=== PATIENT | male | born 1950 | race Caucasian/White ===

== ENCOUNTER 2017-04-20 10:46 | Inpatient (IN) | payer MEDICARE, MEDICAID ==
[~2017-04-20] VITALS: Ht 175.3 cm; Wt 61.3 kg
--- NOTE | ~2017-04-20 | WRIGHTHP ---
[place], [place] PATIENT HISTORY AND PHYSICAL EXAM [id number] UNIT #: [id number] ROOM: 312 DOCTOR: YASMINE RAZA MD BIRTHDATE: [birth year] DOS: 04/20/2017 CHIEF COMPLAINT: "I have just been so depressed doc, I have had so many people doc." HISTORY OF PRESENT ILLNESS: This is a 66-year-old black male who was sent from the [facility] Emergency Room. The patient had presented there with worsening depression with suicidal thoughts and a plan to walk into traffic in order to kill himself. 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 He also reports significant decrease in his appetite with a significant weight loss. The patient states that over the last year, he has had multiple deaths in his family and has found it very difficult to go on. He does also endorse that he has a very poor support system because most of his close family have subsequently passed. He was admitted now to rule out organic factors, to stabilize on medication and to return home when psychiatrically stable. PAST MEDICAL HISTORY: Significant for a history of both alcohol and cocaine abuse as well as a history of hypertension, herniated disk and an old myocardial infarction. MENTAL STATUS: The patient is alert and oriented to person, place, and time. Mood is overwhelmingly depressed. Affect is flat and blunted with a constricted range. He endorses the above-mentioned neurovegetative symptoms including suicidal thoughts with a plan. There is no hypomania or daisy. There are no overt auditory or visual hallucinations. No delusions, no paranoia. Short, intermediate, and custodial memory are relatively intact. DIAGNOSIS: Major depression, recurrent, severe; alcohol abuse; cocaine abuse. PLAN: I have started him on Remeron 15 mg at bedtime. I will augment this with Zyprexa 2.5 mg at bedtime not only to make the antidepressant work better, but to also stimulate appetite. We will engage in individual and bennett milieu activity, provide grief counseling, work on an improved support system post-discharge, discharging him back to the community when psychiatrically stable. [place], [place] PATIENT HISTORY AND PHYSICAL EXAM NAME: LANDRYSTEVEN Jake UNIT #: [id number] ROOM: 312 DOCTOR: YASMINE RAZA MD BIRTHDATE: [birth year] YASMINE RAZA MD CM:HISPHYS:PATIENT HISTORY AND PHYSICAL EXAMINATION [id number] YASMINE RAZA MD 04/21/17 0758 interface
--- NOTE | ~2017-04-20 | PR ---
[place], [place] PROGRESS NOTE NAME: STEVEN LANDRY UNIT #: [id number] ROOM: 312 DOCTOR: YASMINE RAZA MD BIRTHDATE: [birth year] DOS: 04/22/2017 CHIEF COMPLAINT: "I don't feel good at all." SUMMARY OF THE VISIT: The patient was resting quietly lying in the position. He engaged in conversation, reporting he did not feel well because he has not been getting his medications since he is n.p.o. The patient has a danish canela lodged in his throat and they were unable to retrieve it. He is scheduled to be transferred to [facility] for surgery to remove the danish canela. Meanwhile, he remains n.p.o. He did not sleep well last night again because he was not given any of his oral meds, he remains depressed and anxious. MENTAL STATUS: He is alert and oriented with mild gaps. He is very depressed and very anxious at the present time, he is upset about having to go to surgical There is no hypomania or daisy. There is no psychotic symptomatology noted at this time. Memory seems intact. PLAN: Screening examination showed him to have a low vitamin D level of 21.4. I will order vitamin D 50,000 international units weekly. He will not be able to receive this until he is able to take oral meds. My hope is that we will transfer him to [facility] for the surgery and then he can be transferred back here when medically stable. YASMINE RAZA MD CM:PNTRANS [id number] YASMINE RAZA MD 04/22/17 1324 interface
--- NOTE | ~2017-04-20 | O ---
[place], [place] OPERATIVE NOTE NAME: STEVEN LANDRY UNIT #: [id number] ROOM: 312 DOCTOR: COURTNEY OMALLEY MD BIRTHDATE: [birth year] DOS: HISTORY OF PRESENT ILLNESS: This is a 66-year-old patient who presented with chief complaint of history of esophageal stricture who is residing on Psych Unit for depression issues and has been eating dinner; however, suddenly he has not been able to negotiate more food downward and he began emesis and unable to swallow his own saliva consistent with esophageal obstruction. This is secondary to most likely food impaction. PAST MEDICAL HISTORY: Depression, hypertension. ALLERGIES: PENICILLIN AND ASPIRIN. PAST SURGICAL HISTORY: Esophageal dilation with podiatric surgery, esophageal stricture and foreign bodies in past. PROCEDURE: Today's procedure part of investigation is esophagoscopy with pediatric scope P140. PREMEDICATION: Versed and Diprivan. SCOPE: Olympus forward viewing P140. REPORT: After putting the patient in the left lateral position and after application of lubricant to the scope, the scope was introduced; thereafter, under direct visualization and gently advanced the length of esophagus, mid esophageal stricture was encountered and beyond this appears to be a column of food obstruction. Since he has esophageal stricture history and since he has multilevel stricture, known instrumentation was done. The patient extubated after photographic series and tolerated the procedure well. IMPRESSION: Generalized esophageal stricture in addition to multilevel strictures and food impaction. PLAN AND DISCUSSION: I do not have the appropriate instrumentation and poor management of this. We are going to organize transfer to [facility]. Thank you very much indeed. [place], [place] OPERATIVE NOTE NAME: STEVEN LANDRY UNIT #: [id number] ROOM: 312 DOCTOR: COURTNEY OMALLEY MD BIRTHDATE: [birth year] COURTNEY OMALLEY MD CM:OPRECORD:OPERATIVE NOTE 07 11 COURTNEY OMALLEY MD 04/21/172111 interface
[2017-04-20] MEDS ORDERED: LYRICA75 M1 PO (14:57)
[2017-04-20] MEDS ORDERED: OMEPRAZOLE20 M2 PO (14:58)
[2017-04-20] MEDS ORDERED: NORVASC10 MG PO (14:59)
[2017-04-20] MEDS ORDERED: TRAZODONE100 MG PO (14:59)
[2017-04-20] MEDS ORDERED: LEXAPRO5 M1 PO ×2 (14:59→18:18)
[2017-04-20] MEDS ORDERED: SEROQUEL XR50 MG PO (15:00)
[2017-04-20] MEDS ORDERED: NEPHROCAPS1 SGL PO (15:01)
[2017-04-20] MEDS ORDERED: OXYCODONE HCL10 M1 PO (15:02)
[2017-04-20] MEDS ORDERED: TOPROL XL50 M1 PO (15:03)
[2017-04-20] MEDS ORDERED: HYDR25T PO (15:03)
[2017-04-20 18:29] VITALS: BP 153/90
[2017-04-20 18:54] LABS: BILIRUBIN NEGATIVE (NEGATIVE); BLOOD NEGATIVE (NEGATIVE); CLARITY CLEAR (CLEAR); COLOR YELLOW (YELLOW); GLUCOSE NEGATIVE (NEGATIVE); KETONE NEGATIVE (NEGATIVE); LEUKO ESTERASE NEGATIVE (NEGATIVE); NITRITE NEGATIVE (NEGATIVE); PROTEIN NEGATIVE (NEGATIVE)
[2017-04-20 19:01] LABS: BACTERIA 1+; EPITHELIAL CELLS 0-2; RBC 0-2 rbc/hpf (0-2); URINE REFLEX COMMENT NO (NO)
[2017-04-20 20:00] VITALS: BP 143/98
[2017-04-20 22:13] VITALS: BP 143/98
[2017-04-21 07:24] LABS: BASO % 0.6 % (0.0-1.0); EOS # 0.1 10*3/uL (0.0-0.4); EOS % 1.6 % (1.0-4.0); HEMATOCRIT 48.7 % (42.0-52.0); HEMOGLOBIN 16.4 g/dl (14.0-18.0); LYMPH # 2.3 10*3/uL (1.3-4.4); LYMPH % 45.2 % (27.0-41.0); MEAN CELL VOLUME 92.4 fl (80.0-94.0); MEAN CORPUSCULAR HGB 31.1 pg (27.0-31.0); MEAN CORPUSCULAR HGB CONC 33.7 g/dl (33.0-37.0); MEAN PLATELET VOLUME 11.4 fl (9.6-12.3); MONO # 0.7 10*3/uL (0.1-1.0); MONO % 13.7 % (3.0-9.0); NEUT % 38.7 % (47.0-73.0); PLATELET COUNT AUTOMATED 166 10*3/uL (130-400); RED BLOOD COUNT 5.27 10*6/uL (4.50-5.90); RED CELL DISTRI WIDTH 15.8 % (0-14.5); WHITE BLOOD COUNT 5.1 10*3/uL (4.8-10.8)
[2017-04-21 07:31] LABS: HEMOGLOBIN A1c 5.7 % (4.8-5.6)
[2017-04-21 07:51] LABS: ALBUMIN 3.4 gm/dl (3.1-4.5); ALKALINE PHOSPHATASE 74 U/L (45-117); BILIRUBIN, TOTAL 0.9 mg/dl (0.2-1.0); BUN 8 mg/dl (7-24); CARBON DIOXIDE 32 mmol/L (21-32); CHLORIDE 101 mmol/L (98-107); EST GLOM FILT AFRICAN AMERICAN > 60 ml/min; GLUCOSE 89 mg/dL (65-99); POTASSIUM 4.1 mmol/L (3.5-5.1); SGOT/AST 75 IU/L (3-35); SGPT/ALT 52 U/L (12-78); SODIUM 138 mmol/L (136-145); TOTAL PROTEIN 8.4 gm/dL (6.4-8.2)
[2017-04-21 08:00] VITALS: BP 149/98
[2017-04-21 08:11] LABS: VITAMIN D, 25-HYDROXY 21.4 ng/mL (30-100)
[2017-04-21 20:00] VITALS: BP 121/84
[2017-04-21 20:02] VITALS: BP 121/84
[2017-04-21 20:10] VITALS: BP 99/69
[2017-04-21 20:30] VITALS: BP 103/72
[2017-04-21] MEDS ORDERED: ZYPREXA2.5 MG PO (21:20)
[2017-04-21] MEDS ORDERED: REMERON15 M2 PO (21:21)
[2017-04-22 08:16] VITALS: BP 143/88
== END 2017-04-22 14:05 | disposition short-term general hospital (02) | DRG 881 ==
LOC: 3N 10:46
PROVIDERS: Psychiatry & Neurology Psychiatry
PROC: 0DB58ZX Excision of Esophagus, Via Natural or Artificial Opening Endoscopic, Diagnostic (ICD-10-PCS; principal; 2017-04-20)
DX: F32.9 Major depressive disorder, single episode, unspecified (principal); R45.851 Suicidal ideations; T18.128A Food in esophagus causing other injury, initial encounter; I16.0 Hypertensive urgency; F14.10 Cocaine abuse, uncomplicated; I10 Essential (primary) hypertension; I25.2 Old myocardial infarction; Z72.89 Other problems related to lifestyle; Z83.3 Family history of diabetes mellitus; Z88.0 Allergy status to penicillin; Z72.0 Tobacco use; Z71.6 Tobacco abuse counseling; Z88.6 Allergy status to analgesic agent; Z88.1 Allergy status to other antibiotic agents; Z79.899 Other long term (current) drug therapy

== ENCOUNTER 2017-04-28 12:31 | Inpatient (IN) | payer MEDICARE, MEDICAID ==
[~2017-04-28] VITALS: Ht 182.8 cm; Wt 61.2 kg
--- NOTE | ~2017-04-28 | PR ---
[place], [place] PROGRESS NOTE [id number] UN[facility] #: [id number] ROOM: 314 DOCTOR: Katharine CASTELLANOS,CONSTANTIN BIRTHDATE: [birth year] DOS: 05/02/2017 SUBJECTIVE: The patient seen and spoke with the staff. Per staff, the patient did not sleep last night at all; apparently trazodone did not help. Still depressed and had bad sleep, but no other problems or issues. The patient was pleasant, cooperative. He talked about not able to sleep. He says his mood is getting better, but still had fleeting suicidal thoughts, but no intent or plan. He said that he will ask for help. He denied any side effect from the medication. He said that he took Seroquel in the past that helped. MENTAL STATUS EXAMINATION: The patient was pleasant, cooperative, described his mood as "okay." Affect flat. Thought process goal directed. No flight of ideas, loosening of association. He had fleeting suicidal ideation, but no intent or plan. Denied homicidal ideation, intent or plan. Insight and judgment fair. ASSESSMENT: Major depressive disorder, recurrent without psychotic features, currently a little passively suicidal with alcohol abuse. PLAN: 1. I will discontinue his trazodone and start him on Seroquel 200 mg at night. 2. Continue other medications. 3. Continue redirection. CONSTANTIN CASTELLANOS MD CM:PNTRANS [phone] Katharine CASTELLANOS 05/03/17 0610 interface
--- NOTE | ~2017-04-28 | PR ---
[place], [place] PROGRESS NOTE NAME[id number] UNIT #: [id number] ROOM: 314 DOCTOR: Katharine CASTELLANOS,CONSTANTIN BIRTHDATE: [birth year] DOS: 05/04/2017 PSYCHIATRIC PROGRESS NOTE SUBJECTIVE: The patient seen and spoke with the staff. Per staff, the patient is doing well. No behavioral problems or issues. Medication compliant. Slept well last night. The patient was in the wheelchair in the hallway. He reports doing good and feeling better. He feels the medication is helping him. He denied depressed mood or hopelessness. Denied any problem with his medication also. He still had some pain in his chest, which is after the procedure, but did not express any other concern. MENTAL STATUS EXAMINATION: The patient was pleasant, cooperative. He was alert, oriented to day, date, month and year. Speech normal volume and tone. He described his mood as "good." Affect, mood congruent. Thought process goal directed. No flight of ideas, loosening of association. He denied auditory or visual hallucination. No delusion or paranoia noted. He denied any suicidal ideation, intent or plan. He also denied any homicidal ideation, intent or plan. Insight and judgment fair. ASSESSMENT: 1. Major depressive disorder, recurrent without psychotic feature. 2. History of polysubstance abuse. PLAN: 1. Continue current medication and care. 2. Continue redirection. 3. Discharge planning. CONSTANTIN CASTELLANOS MD CM:ALICE [id number] Katharine CASTELLANOS 05/04/17 2311 interface
--- NOTE | ~2017-04-28 | CON ---
[place], [place] REPORT OF CONSULTATION [id number] UNIT #: [id number] ROOM: 314 DOCTOR: KARLOS NOGUEIRA DPM BIRTHDATE: [birth year] DOS: 05/04/2017 SUBJECTIVE: The patient presents as 66-year-old male with a chief complaint of painful elongated, thickened nails and calluses of both feet. PAST MEDICAL HISTORY: The patient has a past medical history significant for esophageal stricture, hypertension, GERD, history of MS, pneumothorax and herniated disk. SUBSTANCE ABUSE HISTORY: History of alcohol abuse in the past, but has been sober for 21 years. PAST PSYCHIATRIC HISTORY: History of psychiatric hospitalizations with 1 prior suicide attempt. Denied having any gun at home. PHYSICAL EXAMINATION: EXTREMITIES: Lower extremity examination: Pedal pulses diminished. Decreased skin temperature and hair growth; mild edema bilateral ankle. Temperature changes, bilateral, crumbly thickened yellow and incurvated nails 1 through 5 bilateral, causing pain, which are dystrophic, crumbly with mycotic odor subungually. Additionally, the patient has painful hyperkeratotic lesions, plantar aspect bilateral hallux, plantar metatarsophalangeal joints, 1, 5 right and 1 left, also hyperkeratotic lesion, plantar aspect right heel. ASSESSMENT: Peripheral vascular disease; onychomycosis; onychocryptosis; hyperkeratotic lesions, bilateral with peripheral vascular disease. PLAN: Evaluation and management. Debrided nails 1 through 5 bilateral foot, debrided lesions, bilateral foot. Ordered Lac-Hydrin lotion applied daily to both feet. Thank you for kind consultation. KARLOS NOGUEIRA DPM CM:CONSTR:REPORT OF CONSULTATION 1220 05/05/17 0327 interface
--- NOTE | ~2017-04-28 | WRIGHTHP ---
[place], [place] PATIENT HISTORY AND PHYSICAL EXAM NAME: STEVEN LANDRY [facility] #: [id number] UNIT #: [id number] ROOM: 314 DOCTOR: Katharine CASTELLANOSCONSTANTIN BIRTHDATE: [birth year] DOS: 04/29/2017 PSYCHIATRIC HISTORY AND PHYSICAL REASON FOR HOSPITALIZATION: Increased depression and suicidal ideation without any specific plan. HISTORY OF PRESENT ILLNESS: The patient seen and chart reviewed. The patient is a 66-year-old -[place] male who was admitted into the psychiatric unit for increased depression and suicidal ideation, but later on he needed to be transferred to a different hospital after he was found to have multiple strictures in his esophagus. The patient was transferred to [facility] where he had a stent placed in the esophagus. During his stay there, he also suffered a fall which resulted in a right-sided pneumothorax and required a chest tube. The chest tube was removed on 04/25/2017. He got medically stabilized and then sent back to the psychiatric unit for further care and stabilization. The patient was pleasant and cooperative, but somewhat guarded and withdrawn during the interview. He mentioned that he moved to [place] almost a year and a half ago to help his mother, but his mother after he came to [place]. He had multiple deaths in the period of 2 years. His last year, his brother , his niece, sister and nephew . The patient mentioned that he could not take it anymore. He started feeling increasingly depressed, sad, hopeless, helpless with lack of energy and motivation. He talked about crying spells, poor sleep and poor appetite. He said that he started drinking alcohol after being sober for 21 years. He said the drinking of his alcohol actually made things worse, so he started having suicidal thoughts. The patient denied any symptoms of psychosis, daisy, or hypomania. He mentioned that he took trazodone and Seroquel in the past. ALLERGIES: PENICILLIN and ASPIRIN. PAST MEDICAL HISTORY: Significant for esophageal stricture, hypertension, GERD, history of myocardial infarct, pneumothorax and herniated disk. PAST PSYCHIATRIC HISTORY: Three prior psychiatric hospitalizations, 1 prior suicide attempt. No suicide in the family. Denied having any gun at home. SUBSTANCE ABUSE HISTORY: The patient had a history of alcohol abuse in the past, but he mentioned that he was sober for 21 years, but relapsed prior to coming to the hospital. SOCIAL HISTORY: He was born and raised in [place], [place], 1 year of college. He was for 46 years. last year. He had 3 girls. He was living in [place], but now he will be living in the [place]. He is on SSI. He denied any history of physical or sexual abuse. MENTAL STATUS EXAMINATION: The patient was pleasant, cooperative. Speech: Low tone. He described his mood as "down." Affect was flat, withdrawn. Thought [place], [place] PATIENT HISTORY AND PHYSICAL EXAM NAME: STEVEN LANDRY UNIT #: [id number] ROOM: 314 DOCTOR: Katharine CASTELLANOS,CONSTANTIN BIRTHDATE: [birth year] process goal directed. No flight of ideas, loosening of association. He denied auditory or visual hallucination. No delusion or paranoia noted. He had suicidal ideation, but no intent or plan. Denied any homicidal ideation, intent or plan. Insight and judgment fair. ASSESSMENT: 1. Major depressive disorder, recurrent without psychotic feature, is still depressed and suicidal. 2. Alcohol abuse. PLAN: 1. I will increase his Remeron to 30 mg at night. 2. Continue redirection. 3. Need to get collateral information. 4. One to one therapy, psychoeducation, and coping skills. CONSTANTIN CASTELLANOS MD CM:HISPHYS:PATIENT HISTORY AND PHYSICAL EXAMINATION [phone] Katharine CASTELLANOS 04/29/17 0855 interface
--- NOTE | ~2017-04-28 | PR ---
[place], [place] PROGRESS NOTE [id number] UN[facility] #: [id number] ROOM: 314 DOCTOR: Katharine CASTELLANOS,CONSTANTIN BIRTHDATE: [birth year] DOS: 04/30/2017 SUBJECTIVE: The patient seen and spoke with the staff. Per staff, the patient slept well all day. No visual problems or issues. Asking for pain medication and med compliant. The patient was pleasant and cooperative. He was in his room. He talked about pain in the chest. I told him that we will ask the medical team to come and look at him. He said that his mood is still depressed. He feels helpless and hopeless, but denied any other neurologic signs and symptoms of depression. He denied any symptoms of psychosis, daisy or hypomania. He denied any side effect from the medication. MENTAL STATUS EXAMINATION: The patient was pleasant, verbally described the mood as "depressed." Affect was flat. Thought process goal directed. No flight of ideas or loosening of associations. He denied auditory or visual hallucination. No delusion or paranoia noted. He had fleeting suicidal ideation, but no intent or plan. Denies homicidal ideation, intent or plan. Insight and judgment fair. ASSESSMENTS: 1. Major depressive disorder, recurrent without psychotic feature. 2. Alcohol dependence. PLAN: 1. Continue current medication and care. 2. Continue redirection. 3. Supportive care. CONSTANTIN CASTELLANOS MD CM:ALICE [phone] Katharine CASTELLANOS 05/01/170 interface
--- NOTE | ~2017-04-28 | PR ---
[place], [place] PROGRESS NOTE [id number] UNIT #: [id number] ROOM: 314 DOCTOR: aKtharine CASTELLANOS,CONSTANTIN BIRTHDATE: [birth year] DOS: 05/01/2017 SUBJECTIVE: The patient seen and spoke with the staff. Per staff, the patient is doing well. No visual problems or issues, taking his medication regularly. The patient was pleasant, cooperative. He was in the day area. He reports poor sleep. He still had fleeting suicidal ideation, but no intent or plan. Denied any homicidal ideation, intent or plan. He denied any problem with his appetite. He said that medication seems helping him, but the thought of harming himself comes and goes. MENTAL STATUS EXAMINATION: The patient was pleasant, cooperative, described his mood as "okay." Affect flat. Thought process goal directed. No flight of ideas or loosening of association. He denied auditory or visual hallucination. No delusion or paranoia noted. He had fleeting suicidal ideation, but no intent or plan. Denied homicidal ideation, intent or plan. Insight and judgment fair. ASSESSMENT: 1. Major depressive disorder, recurrent without psychotic feature 2. Alcohol abuse. PLAN: 1. Continue ____. 2. I will add trazodone 100 mg at night. 3. I will discontinue his Zyprexa. 4. Supportive care. CONSTANTIN CASTELLANOS MD CM:PNRITA [phone] Katharine CASTELLANOS 05/02/17 1305 interface
--- NOTE | ~2017-04-28 | PR ---
[place], [place] PROGRESS NOTE NAME[id number] UN[facility] #: [id number] ROOM: 314 DOCTOR: Katharine CASTELLANOS,CONSTANTIN BIRTHDATE: [birth year] DOS: 05/03/2017 PSYCHIATRIC PROGRESS NOTE SUBJECTIVE: The patient seen and spoke with the staff. Per staff, the patient is doing better, slept well, but seems to be med seeking, asking for Ativan or anxiolytic. The patient was pleasant, cooperative. He was in his room. He reports doing well. He said that he was feeling better. He talked about the discontinuation of the Ativan. I told him that since he has a history of alcohol abuse, his chance of addiction is higher. He did not ask me anything after that. He said that he feels better and denied any depressed mood or hopelessness. Denied any other neurovegetative signs and symptoms of depression. He denied any thoughts of harming himself or anyone else. ASSESSMENT: 1. Major depressive disorder, recurrent without psychotic feature. 2. Polysubstance abuse. PLAN: 1. Continue current medication and care. 2. Continue redirection. 3. Discharge planning. CONSTANTIN CASTELLANOS MD CM:ALICE [phone] Katharine CASTELLANOS 05/04/171914 interface
--- NOTE | ~2017-04-28 | DS ---
[place], [place] DISCHARGE SUMMARY NAME: [id number] UNIT #: [id number] ROOM: 314 DOCTOR: Katharine CASTELLANOS,CONSTANTIN BIRTHDATE: [birth year] DOS: 05/04/2017 HISTORY OF PRESENT ILLNESS: The patient seen and chart reviewed. The patient is a 66-year-old -[place] male who was admitted into the psychiatric unit for increased depression and suicidal ideation, but later on he needed to be transferred to a different hospital after he was found to have multiple strictures in his esophagus. The patient was transferred to [facility] where he had a stent placed in the esophagus. During his stay there, he also suffered a fall which resulted in a right-sided pneumothorax and required a chest tube. The chest tube was removed on 04/25/2017. He got medically stabilized and then sent back to the psychiatric unit for further care and stabilization. The patient was pleasant and cooperative, but somewhat guarded and withdrawn during the interview. He mentioned that he moved to [place] almost a year and a half ago to help his mother, but his mother after he came to [place]. He had multiple deaths in the period of 2 years. His last year, his brother , his niece, sister and nephew . The patient mentioned that he could not take it anymore. He started feeling increasingly depressed, sad, hopeless, helpless with lack of energy and motivation. He talked about crying spells, poor sleep and poor appetite. He said that he started drinking alcohol after being sober for 21 years. He said the drinking of his alcohol actually made things worse, so he started having suicidal thoughts. The patient denied any symptoms of psychosis, daisy, or hypomania. He mentioned that he took trazodone and Seroquel in the past. PAST MEDICAL HISTORY: Significant for esophageal stricture, hypertension, GERD, history of myocardial infarct, pneumothorax and herniated disk. PAST PSYCHIATRIC HISTORY: Three prior psychiatric hospitalizations, 1 prior suicide attempt. No suicide in the family. Denied having any gun at home. SUBSTANCE ABUSE HISTORY: The patient had a history of alcohol abuse in the past, but he mentioned that he was sober for 21 years, but relapsed prior to coming to the hospital. SOCIAL HISTORY: He was born and raised in [place], [place], 1 year of college. He was for 46 years. last year. He had 3 girls. He was living in [place], but now he will be living in the [place]. He is on SSI. He denied any history of physical or sexual abuse. MENTAL STATUS EXAMINATION: The patient was pleasant, cooperative. Speech: Low tone. He described his mood as "down." Affect was flat, withdrawn. Thought process goal directed. No flight of ideas, loosening of association. He denied auditory or visual hallucination. No delusion or paranoia noted. He had suicidal ideation, but no intent or plan. Denied any homicidal ideation, intent or plan. Insight and judgment fair. ADMISSION DIAGNOSIS: Increased depression and suicidal ideation without any specific plan. [place], [place] DISCHARGE SUMMARY NAME: STEVEN LANDRY UNIT #: [id number] ROOM: [facility] DOCTOR: Katharine CASTELLANOS,[facility] BIRTHDATE: [birth year] HOSPITAL COURSE: The patient got admitted for stabilization. He was started on the medication that he was getting before, which was Remeron. The patient tolerated that medication well. During his stay, the patient seems to have some problem with sleep at night. He was feeling increasingly depressed and sad, so his Remeron was increased to 30 mg at night. We also started him on trazodone 100 mg at night and Seroquel 200 at night, which significantly improved his sleep quality. The patient was a little bit seclusive at first, but gradually he started coming around. He was attending groups. He was spending more times into the day area. He was not depressed. He was not hopeless or helpless. He was looking forward to go to the next chapter of his life, which is a rehab facility from where he can go out and go close to his family. It should be noted that during his stay, the patient was seen by the treatment team regularly. A 1:1 therapy, psychoeducation, coping skill was provided to the patient. It should also be noted that the patient has never been a threat to himself or anyone else. He did not do anything where he seems to be a danger to himself. The patient gradually improved. He was not depressed. He was not psychotic. He was not manic or hypomanic. He was not suicidal or homicidal. The treatment team felt the patient with maximum benefit out of his acute hospitalization and can be discharged to the skilled rehab facility on 05/04/2017. From the beginning, the patient agreed to try to minimize his alcohol and drug abuse issues and did not express any interest on going to any rehab programs or taking medication to reduce the craving. MENTAL STATUS EXAMINATION: On discharge, alert and oriented x 4. Pleasant and cooperative. Described his mood as "good." Affect, mood congruent. Thought process goal directed. No flight of ideas, loosening of association. He denied auditory or visual hallucination. No delusion or paranoia noted. He denied any suicidal ideation, intent or plan. He also denied any homicidal ideation, intent or plan. Insight and judgment fair. 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 DISCHARGE MEDICATIONS: Include Seroquel 200 mg at night, trazodone 100 mg at night, and Remeron 30 mg at night. INSTRUCTION AND FOLLOWUP APPOINTMENT: 1. The patient was advised to take his medication regularly. 2. The patient was advised not to use any drugs or alcohol. 3. The patient was advised to attend AA and NA meetings. 4. The patient was advised to call 911 if there is any crisis. [place], [place] DISCHARGE SUMMARY NAME: STEVEN LANDRY UNIT #: [id number] ROOM: [facility] DOCTOR: Katharine CASTELLANOS,CONSTANTIN BIRTHDATE: [birth year] CONSTANTIN CASTELLANOS MD CM:DISCHARG [phone] Katharine CASTELLANOS 05/06/17 1032 interface
[~2017-04-28 12:31] MED LIST: HYDR25T PO; LEXAPRO5 M1 PO; LYRICA75 M1 PO; NEPHROCAPS1 SGL PO; NORVASC10 MG PO; OMEPRAZOLE20 M2 PO; OXYCODONE HCL10 M1 PO; REMERON15 M2 PO; SEROQUEL XR50 MG PO; TOPROL XL50 M1 PO; TRAZODONE100 MG PO; ZYPREXA2.5 MG PO
[2017-04-28] MEDS ORDERED: MAALOX ADVANCE355 M1 PO (18:27)
[2017-04-28] MEDS ORDERED: ZOSTRIX 0.025%,60 GM PO (18:29)
[2017-04-28] MEDS ORDERED: ENSURE ACTIVE414 ML PO (18:31)
[2017-04-28] MEDS ORDERED: ATIVAN1 MG PO (18:32)
[2017-04-28] MEDS ORDERED: ROXICODONE5 MG PO (18:41)
[2017-04-28 20:00] VITALS: BP 110/68
[2017-04-29 07:10] LABS: BASO % 0.4 % (0.0-1.0); EOS # 0.3 10*3/uL (0.0-0.4); EOS % 3.6 % (1.0-4.0); HEMATOCRIT 42.4 % (42.0-52.0); HEMOGLOBIN 14.2 g/dl (14.0-18.0); LYMPH # 2.5 10*3/uL (1.3-4.4); LYMPH % 35.3 % (27.0-41.0); MEAN CELL VOLUME 93.8 fl (80.0-94.0); MEAN CORPUSCULAR HGB 31.4 pg (27.0-31.0); MEAN CORPUSCULAR HGB CONC 33.5 g/dl (33.0-37.0); MEAN PLATELET VOLUME 11.3 fl (9.6-12.3); MONO # 1.2 10*3/uL (0.1-1.0); MONO % 16.1 % (3.0-9.0); NEUT # 3.2 10*3/uL (2.3-7.9); NEUT % 44.3 % (47.0-73.0); PLATELET COUNT AUTOMATED 209 10*3/uL (130-400); RED BLOOD COUNT 4.52 10*6/uL (4.50-5.90); WHITE BLOOD COUNT 7.2 10*3/uL (4.8-10.8)
[2017-04-29 07:38] LABS: ALBUMIN 3.2 gm/dl (3.1-4.5); ALKALINE PHOSPHATASE 57 U/L (45-117); BILIRUBIN, TOTAL 0.6 mg/dl (0.2-1.0); BUN 11 mg/dl (7-24); CARBON DIOXIDE 35 mmol/L (21-32); CHLORIDE 96 mmol/L (98-107); CHOLESTEROL 121 mg/dL (<200); EST GLOM FILT AFRICAN AMERICAN > 60 ml/min; GLUCOSE 105 mg/dL (65-99); HDL CHOLESTEROL 31 mg/dl (40-60); LDL CHOLESTEROL 66 mg/dL (9-159); POTASSIUM 3.9 mmol/L (3.5-5.1); SGOT/AST 43 IU/L (3-35); SGPT/ALT 36 U/L (12-78); SODIUM 137 mmol/L (136-145); TOTAL PROTEIN 8.4 gm/dL (6.4-8.2); TRIGLYCERIDES 118 mg/dl (<150); VLDL CHOLESTEROL 24 mg/dL (6-40)
[2017-04-29 07:52] LABS: HEMOGLOBIN A1c 5.7 % (4.8-5.6)
[2017-04-29 08:24] VITALS: BP 121/74
[2017-04-29 08:33] LABS: FOLIC ACID 12.52 ng/mL (>5.38); VITAMIN D, 25-HYDROXY 17.8 ng/mL (30-100)
[2017-04-29 19:52] VITALS: BP 104/73
[2017-04-30 08:40] VITALS: BP 118/82
[2017-04-30 20:27] VITALS: BP 112/61
[2017-05-01 10:36] VITALS: BP 104/60
[2017-05-01 20:00] VITALS: BP 112/72
[2017-05-02 08:06] VITALS: BP 109/73
[2017-05-02 08:30] VITALS: BP 120/78
[2017-05-02 20:08] VITALS: BP 102/57
[2017-05-03 08:00] VITALS: BP 104/62
[2017-05-03] MEDS ORDERED: MIRTAZAPINE30 M2 PO (19:10)
[2017-05-03] MEDS ORDERED: QUETIAPINE FUM100 M3 PO (19:10)
[2017-05-03 20:12] VITALS: BP 138/80
[2017-05-04 07:56] VITALS: BP 103/65
[2017-05-04] MEDS ORDERED: HYDR12.5C PO (12:21)
[2017-05-04] MEDS ORDERED: OXYCODONE HCL5 MG PO (12:21)
[2017-05-04] MEDS ORDERED: TRAMADOL HCL50 MG PO (12:21)
[2017-05-04] MEDS ORDERED: VITAMIN D5000 UNI1 PO (12:21)
== END 2017-05-04 14:00 | disposition other institution (70) | DRG 885 ==
LOC: 3N 12:31
PROVIDERS: Psychiatry & Neurology Psychiatry
PROC: 0HBRXZZ Excision of Toe Nail, External Approach (ICD-10-PCS; principal; 2017-05-04)
DX: F33.2 Major depressive disorder, recurrent severe without psychotic features (principal); J93.12 Secondary spontaneous pneumothorax; R45.851 Suicidal ideations; M51.25 Other intervertebral disc displacement, thoracolumbar region; K22.2 Esophageal obstruction; E87.8 Other disorders of electrolyte and fluid balance, not elsewhere classified; I10 Essential (primary) hypertension; Y90.9 Presence of alcohol in blood, level not specified; F19.10 Other psychoactive substance abuse, uncomplicated; E02 Subclinical iodine-deficiency hypothyroidism; F14.10 Cocaine abuse, uncomplicated; E55.9 Vitamin D deficiency, unspecified; R73.03 Prediabetes; F17.210 Nicotine dependence, cigarettes, uncomplicated; F10.20 Alcohol dependence, uncomplicated; I73.9 Peripheral vascular disease, unspecified; K21.0 Gastro-esophageal reflux disease with esophagitis; B35.1 Tinea unguium; L60.0 Ingrowing nail; L85.9 Epidermal thickening, unspecified; Z88.0 Allergy status to penicillin; Z88.6 Allergy status to analgesic agent; Z71.6 Tobacco abuse counseling; I25.2 Old myocardial infarction; Z83.3 Family history of diabetes mellitus; Z79.899 Other long term (current) drug therapy